=== PATIENT | male | born 2000 | race Caucasian/White ===

== ENCOUNTER 2021-06-23 09:54 | Observation (INO) | payer OTHER ==
[~2021-06-23] VITALS: Ht 175.3 cm; Wt 72.9 kg
--- NOTE | 2021-06-23 15:00 | NUR ---
PT ARRIVED TO CCU AT 1430. PT IS AAOX4, PT IS STILL SUICIDAL AT THIS TIME. ASSESSMENT WAS WDL OVERALL. HR IS AT TIMES A BIT ELEVATED IN THE 120'S, OTHER V/S WDL. PT ALSO STATED THAT HE HAS HAD A 40LB WEIGHT LOSS SINCE EARLIER THIS YEAR. [email or web address] IS HERE NOW.
--- NOTE | 2021-06-23 15:04 | NUR ---
LABS DUE. THIS RN ASSISTING ROMEO, PTS PRIMARY RN. LEFT AC IV FLUSHED AND 8ML WASTE WITHDRAWN FROM IV LINE. 10ML LAB DRAW FROM LEFT AC IV. TUBED IN GREEN ON ICE, GREEN, AND YELLOW TUBES AND SENT WITH JAYLEEN BACK TO LAB. LEFT AC IV FLUSHED/SALINE LOCKED PER PROTOCOL. ALCOHOL CAP APPLIED. PT WORKING WITH TOMMY WALTERS, NO ADDITIONAL REQUESTS OR COMPLAINTS. ROMEO UPDATED ON RECCOMENDATIONS PER CALL FROM POISEN CONTROL FOR Q2 HOUR POTASSIUM AND SALICALYTE LEVELS AND Q4-6 VBG LABS.
--- NOTE | 2021-06-23 16:03 | NUR ---
DR. BAKER CALLED AND UPDATED PER REQUEST FROM TOMMY WALTERS, REGARDING RECCOMENDATIONS FROM POISON CONTROL. ORDERS CONFIRMED BY DR. BAKER TO STOP BICARBONATE DRIP NOW AND REPEAT LABS AT 1900. ROMEO, PTS PRIMARY RN UPDATED.
--- NOTE | 2021-06-23 17:00 | NUR ---
PT WAS NOT PUT ON A HOLD SINCE PT IS WILLING TO GO TO TREATMENT. MD BAKER AWARE. IV FLIUDS STOPPED, WILL CONTINUE LABS. HR SELDOMLY IN THE LOW 100'S AT THIS TIME. OTHER V/S WDL, URINE OUTPUT WDL, PO INTAKE WDL.
--- NOTE | 2021-06-23 18:13 | NUR ---
ASSESSMENT IS WDL. PT HAS NO NEW CONCERNS, PHYSICAL CONCERNS THAT IS. PT STILL SUICIDAL. V/S WDL. PT RESTING IN BED.
--- NOTE | 2021-06-23 19:20 | NUR ---
THIS CARTRIDGE GAUGER AND RN IN PT RM TO MEET PT, PTs CELL PHONE AND BELONGINS BAG SECURED AT NURSING STATION, PT RESTING IN BED
--- NOTE | 2021-06-23 20:00 | NUR ---
PT IS A&OX4. NO COMPLAINTS OF ABDOMINAL PAIN OR RINGING IN EARS. PT IS IN PAPER GOWN, ROOM RISK ASSESSMENT COMPLETED AND ITEMS NOT MEDICALLY NECCESARY WERE REMOVED. PT HAS 1:1 OBSERVATION. WILL CONTINUE TO MONIOTR.
--- NOTE | 2021-06-23 20:41 | NUR ---
UPDATE GIVEN TO POISON CONTROL
--- NOTE | 2021-06-23 21:19 | EKG ---
[facility] [address] [place], [place] [address] Signed Normal sinus rhythm with sinus arrhythmia Normal ECG No previous ECGs available Confirmed by NEVIN BAKER DO ([id number]) on 06/23/2021 9:19:24 PM Electronically Signed By: NEVIN BAKER DO 06/23/[id number] PATIENT NAME: JEREL MARTINEZ Electrocardiogram DATE OF : [birth year] PHYSICIAN: NEVIN BAKER DO REPORT #: [id number] REPORT IS CONFIDENTIAL AND NOT TO BE RELEASED WITHOUT AUTHORIZATION
--- NOTE | 2021-06-23 22:39 | NUR ---
PT COMPLAINED OF RETURN OF RINGING IN EARS AND 4/10 HEADACHE. PT GIVEN PRN TYLENOL. NOW RESTING QUIETLY EYES CLOSED. WILL CONTINUE TO MONIOTR.
--- NOTE | 2021-06-23 23:38 | NUR ---
PT UP TO THE TOILET, ASSISTED WITH MONITOR CORDS, PT TRYNG FOR A BM, PT BACK TO BED
--- NOTE | 2021-06-24 00:19 | NUR ---
PT REPORTS IMPROVED HEADACHE WITH A PAIN OF 2/10, REPORTS TOLERABLE. RINGING IN EARS "COMES AND GOES". DENIES GI UPSET. WILL CONTINUE TO MONIOTR.
--- NOTE | 2021-06-24 01:05 | NUR ---
PT IS AWAKE AND TALKATIVE. RN PROVIDED TIME FOR PT TO EXPRESS HIS FEELINGS. PT STATES HE IS READY FOR HELP AND EXPRESSES DESIRE TO IMPROVE HIMSELF. WILL CONTINUE TO MONIOR.
--- NOTE | 2021-06-24 07:30 | NUR ---
RECEIVED REPORT AT 0700. PT IN ROOM RESTING WITH SITTER IN ROOM. NO NEW CONCERNS NOTED AT THIS TIME.
--- NOTE | 2021-06-24 07:45 | NUR ---
TALKED TO POISON CONTROL JUST BEFORE 729. SINCE THE 399 LABS WERE WDL, WE NOW CAN CANCEL ALL FUTURE LABS ( K+, VBG, SALICYLATE LEVELS) CAN BE CANCELLED. PT ALSO AT THIS TIME DENIES ANY SUICIDAL IDEATION. ASSESSMENT WAS WDL OVERALL. NO NEW CONCERNS NOTED AT THIS TIME. V/S WDL.
--- NOTE | 2021-06-24 08:45 | NUR ---
PT medically cleared per Dr. Young and posion control. [facility] called at this time to request a provider come in and assess PT.
--- NOTE | 2021-06-24 09:00 | NUR ---
PT STILL RESTING IN BED. SITTER IN ROOM. PT OFF MONITORS. NO NEW CONCENRS NOTED.
--- NOTE | 2021-06-24 09:31 | NUR ---
MED REC COMPLETED BY PHARMACY, PATIENT TAKES NO HOME MEDS
--- NOTE | 2021-06-24 09:49 | NUR ---
JUST CALLED [facility] AND I WAS TOLD THAT MICHAEL WILL BE HER SHORTLY TO SEE PT.
--- NOTE | 2021-06-24 11:15 | NUR ---
[facility] IN ROOM NOW WITH PT.
--- NOTE | 2021-06-24 12:14 | NUR ---
[facility] STILL IN ROOM.
--- NOTE | 2021-06-24 12:15 | NUR ---
[facility] COUNSELING STAFF IN WITH PT. WILL FOLLOW NEEDED
--- NOTE | 2021-06-24 13:27 | NUR ---
NEMESIO CAME OUT OF PT ROOM AT ABOUT 1300. PT IS BEING D/C TO HOME SINCE HE NO LONGER IS A THREAT TO SELF AND OTHERS. PT WILL DO OUTPATIENT THERAPY. PT IN ROOM RESTING. PT NO LONGER A 1:1 NOW.
--- NOTE | 2021-06-24 13:45 | NUR ---
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 He does not have a pcp, but would accept one. He has been medically released by Dr Young and also release by [facility]. He has a follow up appt with Tk Garcia on Jun.29 at 2 pm. He was seen by the physician clinic yesterday and I will check if Dr. Jaime has space open. Will follow up with pt.
--- NOTE | 2021-06-24 13:55 | NUR ---
PT READY FOR DISCHAGE. PT HAS DRESSED SELF, NO ASSISTANCE NEEDED. PT COMES TO NURSES STATION READY TO LEAVE. DISCHARGE INSTRUCTIONS REVIEWED WITH PT. PT VERBALIZES UNDERSTANDING OF INSTRUCTIONS, FOLLOW UP APPOINTMENTS, AND CRISIS LINES. CRISIS LINES AND SUICIDE HOTLINE NUMBERS PROVIDED TO PT. PT ACCOMPAINIED TO THE FRONT OF THE HOSPITAL BY THIS RN, PT DENIES ADDITIONAL REQUESTS OR CONCERNS. pT STATES HE WILL BE DRIVING HIMSELF HOME HE DROVE HIMSELF HERE.
== END 2021-06-24 13:55 | disposition home or self-care (01) ==
LOC: ED 09:54 → CCU 09:57
PROVIDERS: ADMIT Internal Medicine; ATTEND Internal Medicine
DX: T39.012A Poisoning by aspirin, intentional self-harm, initial encounter (principal); R51.9 Headache, unspecified; H93.13 Tinnitus, bilateral; Z91.51 Personal history of suicidal behavior; Z20.822 Contact with and (suspected) exposure to COVID-19
CPT/HCPCS: 80048; 80053; 81001; 82800; 82803; 84132; 84443; 85025; 93005; 93010; 96365; 96366; 99285-25; G0480; J3480; J7030; J7070; U0003